=== PATIENT | female | born 1960 | race Caucasian/White ===

== ENCOUNTER 2017-09-12 14:03 | Day surgery (SDC) | payer OTHER ==
[2017-09-12] MEDS ORDERED: PROPOFOL 10 MG/ML VIAL IV ONE (14:04)
[2017-09-12] MEDS ORDERED: LIDOCAINE 2% MDV (20MG/ML) 20ML VIAL IV ONE (14:04)
--- NOTE | 2017-09-13 15:40 | Operative Note ---
DATE OF SURGERY: 09/12/2017 REFERRING PROVIDER: Gilmar Lloyd DO PREOPERATIVE DIAGNOSIS: Colon cancer screening and dyspepsia. POSTOPERATIVE DIAGNOSES: 1. Gastritis, possible mild portal hypertensive gastropathy. 2. Ascending colon polyp. OPERATION: 1. ESOPHAGOGASTRODUODENOSCOPY with biopsy. 2. COLONOSCOPY with cold snare polypectomy. PROCEDURE: After informed consent was obtained, the patient was placed in the left lateral decubitus position in the endoscopy suite, sedated and monitored by the Department of Anesthesia. Once sedated, a well-lubricated APW563 gastroscope was placed in the posterior oropharynx and under direct visualization passed to the proximal esophagus. The endoscope was advanced to the proximal, mid and distal esophagus. The GE junction and esophagus were unremarkable. No varices, ulcers, erosions, strictures or mass lesions were seen. The squamocolumnar border appeared unremarkable. The gastric body demonstrated normal distensibility, normal rugal folds. There were mosaic changes suggestive of possible mild portal hypertensive gastropathy. The antrum, pylorus, duodenal bulb and sweep were otherwise unremarkable. J-turn views of the proximal stomach revealed no vascular abnormalities. The only changes appeared to be mucosal and had the appearance of possible mild portal hypertensive gastropathy. The endoscope was then straightened, the antral biopsies were obtained, and the endoscopy was removed from the patient with no new findings noted. Digital rectal exam was unremarkable. A well-lubricated PCF-180 colonoscope was inserted into the rectum and advanced to the cecum. The preparation quality was good to excellent. The ileocecal valve, appendiceal orifice, and cecum were unremarkable. The ascending colon revealed a 5 mm sessile polyp removed with a cold snare. The polyp was retrieved. No excessive bleeding was noted. The remainder of the ascending colon, transverse colon, descending colon, sigmoid colon, and rectum were unremarkable. J-turn views of the anorectum were unremarkable. The endoscope was straightened, the rectal ampulla deflated and the endoscope was removed. RECOMMENDATIONS: The patient should resume her medications and diet. I will have her have liver chemistries obtained as well as a FibroSURE. As always, thank you for allowing me to participate in the health care of your patients. CC: Gilmar Lloyd DO [facility]
== END 2017-09-12 16:10 | disposition home or self-care (01) ==
LOC: HOP 14:03
PROVIDERS: ATTEND Internal Medicine Gastroenterology
DX: Z12.11 Encounter for screening for malignant neoplasm of colon (principal); D12.2 Benign neoplasm of ascending colon; K29.70 Gastritis, unspecified, without bleeding; R10.13 Epigastric pain; I10 Essential (primary) hypertension; R00.2 Palpitations